=== PATIENT | female | born 1990 | race African-American/Black ===

== ENCOUNTER 2018-12-18 12:47 | Outpatient (CLI) | payer OTHER ==
--- NOTE | 2018-12-18 13:24 | Diagnostic Imaging Report ---
Indication: Left knee pain Technique: 3 views of the left knee Comparison: None Findings: Bone mineralization within normal limits. There is no evidence of acute fracture or dislocation. Anatomic alignment and joint spaces are maintained. No suprapatellar joint effusion. No radiopaque foreign body. Impression: Unremarkable radiographic examination of the left knee.
== END 2018-12-18 14:47 | disposition home or self-care (01) ==
LOC: RAD 12:47
DX: M25.562 Pain in left knee (principal)